=== PATIENT | male | born 1970 | race Caucasian/White ===

== ENCOUNTER 2020-11-14 02:50 | Emergency (ER) | payer SELFPAY ==
[~2020-11-14] VITALS: Ht 175.3 cm; Wt 88.5 kg
[2020-11-14 02:58] VITALS: BP 128/87
== END 2020-11-14 03:12 ==
LOC: MED 02:50
DX: Z02.89 Encounter for other administrative examinations (principal); V98.8XXA Other specified transport accidents, initial encounter; Y93.89 Activity, other specified; Y92.89 Other specified places as the place of occurrence of the external cause; Y99.8 Other external cause status
CPT/HCPCS: 99283